=== PATIENT | male | born 1970 | race Caucasian/White ===

== ENCOUNTER 2017-09-02 06:03 | Day surgery (SDC) | payer BC, OTHER ==
[~2017-09-02] VITALS: Ht 180.3 cm; Wt 91.4 kg
[2017-09-02] MEDS ORDERED: LACTATED RINGERS 1,000 ML IV SCH (06:47)
[2017-09-02 06:48] VITALS: BP 127/86
[2017-09-02] MEDS ORDERED: NONE PER PT (06:48)
[2017-09-02] MEDS ORDERED: MIDAZOLAM 1 MG/ML, 2ML ONE ×2 (07:02→07:08)
[2017-09-02] MEDS ORDERED: FENTANYL PF 250 MCG/5ML ONE (07:07)
[2017-09-02] MEDS ORDERED: DEXAMETHASONE 4 MG/ML, 1ML ONE ×2 (07:22→07:41)
[2017-09-02] MEDS ORDERED: HYDROmorphone 2 MG/ML, 1ML ONE (07:22)
[2017-09-02] MEDS ORDERED: PROPOFOL 10 MG/ML, 20ML ONE ×2 (07:22→07:41)
[2017-09-02] MEDS ORDERED: ONDANSETRON 2MG/ML, 2ML ONE ×2 (07:22→07:41)
[2017-09-02] MEDS ORDERED: MIDAZOLAM 1 MG/ML, 5ML ONE (07:22)
[2017-09-02] MEDS ORDERED: KETOROLAC 30 MG/1 ML ONE ×2 (07:22→07:45)
[2017-09-02] MEDS ORDERED: FENTANYL PF 100 MCG/2ML ONE (07:22)
[2017-09-02] MEDS ORDERED: BUPIVACAINE/PF-EPI 0.5% 1:200K INFIL ONE (07:39)
[2017-09-02] MEDS ORDERED: LIDOCAINE 1%-EPI 1:100K, 50ML INFIL ONE (07:40)
[2017-09-02] MEDS ORDERED: CEFAZOLIN 1,000 MG ONE (07:41)
[2017-09-02] MEDS ORDERED: HYDROmorphone 1 MG/ML, 1ML ONE (07:43)
[2017-09-02] MEDS ORDERED: EPINEPHRINE 1 MG/ML, 1ML ONE (07:58)
[2017-09-02] MEDS ORDERED: LIDOCAINE 1%, 50ML ONE (07:58)
[2017-09-02] MEDS ORDERED: BUPIVACAINE/PF 0.5% ONE (07:58)
[2017-09-02] MEDS ORDERED: MEPERIDINE/PF 25MG/0.5ML IVPush PRN (08:00)
[2017-09-02] MEDS ORDERED: ONDANSETRON 2MG/ML, 2ML IVPush PRN (08:00)
[2017-09-02] MEDS ORDERED: FENTANYL PF 100 MCG/2ML IV PRN (08:00)
[2017-09-02] MEDS ORDERED: MIDAZOLAM 1 MG/ML, 2ML IV PRN (08:00)
[2017-09-02] MEDS ORDERED: PROMETHAZINE 25 MG/ML, 1ML IV PRN (08:00)
[2017-09-02] MEDS ORDERED: hydrALAzine 20 MG/ML, 1ML IV PRN (08:00)
[2017-09-02] MEDS ORDERED: OXYcodone 5 MG/5 ML ORAL.SOL UDC PO PRN (08:00)
[2017-09-02] MEDS ORDERED: ACETAMINOPHEN 325 MG TABLET PO PRN (08:00)
[2017-09-02] MEDS ORDERED: LORazepam 2 MG/ML, 1ML IVPush PRN (08:00)
[2017-09-02] MEDS ORDERED: DIAZEPAM 5 MG/ML, 2ML IVPush PRN (08:00)
[2017-09-02] MEDS ORDERED: HYDROmorphone 1 MG/ML, 1ML IV PRN (08:00)
[2017-09-02] MEDS ORDERED: LABETALOL 5MG/ML, 20ML IV PRN (08:00)
[2017-09-02] MEDS ORDERED: ALBUTEROL/IPRATROPIUM 2.5MG/0.5MG, 3 ML NPPB PRN (08:00)
== END 2017-09-02 10:25 ==
LOC: MERGE 06:03 → OUT 06:03
PROVIDERS: ATTEND Orthopaedic Surgery
DX: S83.242A Other tear of medial meniscus, current injury, left knee, initial encounter (principal); X58.XXXA Exposure to other specified factors, initial encounter; Y93.89 Activity, other specified; Y92.89 Other specified places as the place of occurrence of the external cause; Y99.8 Other external cause status
CPT/HCPCS: 29881; J0171; J0690; J1100; J1170; J1885; J2250; J2405; J2704; J3010; J3490; J7120